=== PATIENT | female | born 1930 | race Caucasian/White ===

== ENCOUNTER 2018-01-05 10:49 | Emergency (ER) | payer MEDICARE, OTHER ==
[~2018-01-05] VITALS: Ht 170.2 cm; Wt 76.0 kg
[~2018-01-05 10:49] MED LIST: CIPR500T2 PO; CYCL5TAB PO; DIFFCHW PO; DONE10TA7 PO; DRIS50002 PO; FERR65TA PO; LORA-474 PO; LOSA50TA PO; MAGNSOL PO; MECL-62 PO; MIRA33504 PO; MONT10TA4 PO; MULT1TAB84 PO; MULT400T PO; NIFE15TA PO; OMEP40CA2 PO; PERI8.6T PO; PRED10 PO; RANI150C PO; REME15TA PO; TUMS500C CHEW; VENL75TA PO; XARE20TA PO; ZOFR4TAB PO
[2018-01-05 11:08] VITALS: BP 130/62; PULSE 72; RESP 16; TEMP 97.6; O2SAT 96
[2018-01-05] MEDS ORDERED: SODIUM CHLORID 0.9% 500 ML INJ 500 ML IV ONE (12:30)
--- NOTE | 2018-01-05 12:32 | PD ---
HPI Chief Complaint: GI Complaint Time Seen by Provider: 12:15 Travel History International Travel<30 days: No Contact w/Intl Traveler<30days: No Traveled to known affect area: No History of Present Illness HPI This 87-year-old female says she has had large amounts of loose stools since . Symptoms seem worse Friday and Friday she was having 3-4 loose stools a day. She was feeling weak. This morning she again had loose stools. She says are quite watery they are not dark. He does not think she has been on any antibiotics recently. She was told recently that she had a UTI but did not get any antibiotics for it. She feels weak all over PFSH Past Medical History Hx Anticoagulant Therapy: Yes Arthritis: Yes (OSTEO) Depression: Yes Heart Rhythm Problems: Yes (AFIB) Cancer: Yes Cardiovascular Problems: Yes (htn on meds, vena cava filter) Chemotherapy: No COPD: Yes Diabetes: No Diminished Hearing: Yes Deep Vein Thrombosis: Yes Fibromyalgia: Yes Implanted Vascular Access Dvce: Yes Musculoskeletal: Yes (LUMBAR SPONDYLOSIS, BULGING DISCS, SCIATICA) Neurologic: Yes Respiratory: No Radiation Therapy: No ?: Not Menopausal: Yes Past Surgical History Body Medical Devices: FILTER AND BREAST IMPLANTS Ear Surgery: Yes (JAVIER CATARACTS) Eye Surgery: Yes (BILATERAL CATARACTS) Gynecologic Surgery: Yes (LEFT MASTECTOMY) Hysterectomy: No Mastectomy: Yes (LEFT, WITH RECONSTRUCTION) Pacemaker: No Other Surgery: Yes (FILTER FOR BLOOD CLOTS) Social History Alcohol Use: Yes (RARELY) Tobacco Use: No (FORMER) Substance Use: No Allergies-Medications (Allergen,Severity, Reaction): Coded Allergies: hydrocodone (Unverified Allergy, Severe, N/V, 01/05/18) Reported Meds & Prescriptions Reported Meds & Active Scripts Active Reported Nifedipine ER 24 HR (Nifedipine) 60 Mg Tab 60 Mg PO DAILY Eq Magnesium Citrate (Magnesium Citrate) 1.745 Gm/30 Ml Vickie 1 Bottle PO DIRECTED PRN Ativan (Lorazepam) 1 Mg Tab 1 Mg PO BID PRN Diff-Stat (Probiotic Product) 1 Cap Cap 1 Cap PO BID Remeron (Mirtazapine) 15 Mg Tab 15 Mg PO HS Omeprazole 40 Mg Cap 40 Mg PO DAILY Meclizine (Meclizine HCl) 25 Mg Tab 25 Mg PO TID PRN Flexeril (Cyclobenzaprine HCl) 5 Mg Tab 5 Mg PO BID PRN Effexor (Venlafaxine HCl) 75 Mg Tab 75 Mg PO DAILY Donepezil 10 Mg Tab 10 Mg PO DAILY Losartan (Losartan Potassium) 50 Mg Tab 50 Mg PO DAILY Multaq (Dronedarone) 400 Mg Tab 400 Mg PO BID Xarelto (Rivaroxaban) 20 Mg Tab 20 Mg PO DAILY Montelukast (Montelukast Sodium) 10 Mg Tab 10 Mg PO DAILY Review of Systems General / Constitutional: No: Fever, Chills Eyes: No: Diploplia, Blurred Vision HENT: No: Headaches, Vertigo Cardiovascular: No: Chest Pain or Discomfort, Palpitations Respiratory: No: Cough, Shortness of Breath Gastrointestinal: Positive: Diarrhea, No: Nausea, Vomiting Genitourinary: No: Urgency, Frequency Musculoskeletal: No: Myalgias, Arthralgias Skin: No Rash, No Itching Neurologic: Positive: Weakness Endocrine: No: Heat Intolerance Hematologic/Lymphatic: No: Easy Bruising Physical Exam Narrative GENERAL: Well-developed female SKIN: Focused skin assessment warm/dry. HEAD: Atraumatic. Normocephalic. EYES: Pupils equal and round. No scleral icterus. No injection or drainage. ENT: No nasal bleeding or discharge. Mucous membranes pink and moist. NECK: Trachea midline. No JVD. CARDIOVASCULAR: Regular rate and rhythm. No murmur appreciated. RESPIRATORY: No accessory muscle use. Clear to auscultation. Breath sounds equal bilaterally. GASTROINTESTINAL: Abdomen soft, non-tender, nondistended. Hepatic and splenic margins not palpable. MUSCULOSKELETAL: No obvious deformities. No clubbing. No cyanosis. No edema. NEUROLOGICAL: Awake and alert. No obvious cranial nerve deficits. Motor grossly within normal limits. Normal speech. PSYCHIATRIC: Appropriate mood and affect; insight and judgment normal. Data Data Last Documented VS Vital Signs Date Time Temp Pulse Resp B/P (MAP) Pulse Ox O2 Delivery O2 Flow Rate FiO2 01/05/18 13:01 52 18 131/71 (91) 97 Room Air 01/05/18 11:08 97.6 Orders Orders Complete Blood Count With Diff (01/05/18 12:25) Comprehensive Metabolic Panel (01/05/18 12:25) Urinalysis - C+S If Indicated (01/05/18 12:25) Magnesium (Mg) (01/05/18 12:25) Sodium Chlorid 0.9% 500 Ml Inj (Ns 500 M (01/05/18 12:30) Urine Culture (01/05/18 12:40) Ceftriaxone Inj (Rocephin Inj) (01/05/18 13:15) Sodium Chlor 0.9% 1000 Ml Inj (Ns 1000 M (01/05/18 13:30) Labs Laboratory Tests Test 01/05/18 12:35 01/05/18 12:40 White Blood Count 5.5 TH/MM3 Red Blood Count 4.01 MIL/MM3 Hemoglobin 12.1 GM/DL Hematocrit 36.3 % Mean Corpuscular Volume 90.6 FL Mean Corpuscular Hemoglobin 30.1 PG Mean Corpuscular Hemoglobin Concent 33.2 % Red Cell Distribution Width 13.5 % Platelet Count 298 TH/MM3 Mean Platelet Volume 8.4 FL Neutrophils (%) (Auto) 63.2 % Lymphocytes (%) (Auto) 24.3 % Monocytes (%) (Auto) 11.4 % Eosinophils (%) (Auto) 0.3 % Basophils (%) (Auto) 0.8 % Neutrophils # (Auto) 3.6 TH/MM3 Lymphocytes # (Auto) 1.3 TH/MM3 Monocytes # (Auto) 0.6 TH/MM3 Eosinophils # (Auto) 0.0 TH/MM3 Basophils # (Auto) 0.0 TH/MM3 CBC Comment DIFF FINAL Differential Comment Blood Urea Nitrogen 33 MG/DL Creatinine 1.80 MG/DL Random Glucose 117 MG/DL Total Protein 7.9 GM/DL Albumin 3.1 GM/DL Calcium Level 7.8 MG/DL Magnesium Level 2.4 MG/DL Alkaline Phosphatase 78 U/L Aspartate Amino Transf (AST/SGOT) 27 U/L Alanine Aminotransferase (ALT/SGPT) 25 U/L Total Bilirubin 0.3 MG/DL Sodium Level 135 MEQ/L Potassium Level 3.5 MEQ/L Chloride Level 104 MEQ/L Carbon Dioxide Level 19.5 MEQ/L Anion Gap 12 MEQ/L Estimat Glomerular Filtration Rate 27 ML/MIN Urine Collection Type CLEAN CATCH Urine Color YELLOW Urine Turbidity CLEAR Urine pH 5.5 Urine Specific [place] 1.025 Urine Protein TRACE mg/dL Urine Glucose (UA) NEG mg/dL Urine Ketones NEG mg/dL Urine Occult Blood NEG Urine Nitrite NEG Urine Bilirubin NEG Urine Urobilinogen 0.2 MG/DL Urine Leukocyte Esterase SMALL Urine RBC 0-3 /hpf Urine WBC 25-49 /hpf Urine WBC Clumps FEW Urine Squamous Epithelial Cells 0-5 /hpf Urine Bacteria FEW /hpf Microscopic Urinalysis Comment CULTURE INDICATED Urine Collection Time 12:40 [facility] Medical Decision Making Medical Screen Exam Complete: Yes Emergency Medical Condition: Yes Medical Record Reviewed: Yes Differential Diagnosis Differential includes enteritis, UTI, dehydration Narrative Course Urinalysis shows 25-50 white cells. Creatinine is elevated at 1.8. We do not have a recent value on her. She has been given some IV fluids and a dose of Rocephin. She will be released with prescription for Keflex Diagnosis Primary Impression: UTI (urinary tract infection) Scripts Cephalexin (Keflex) 500 Mg Capsule 500 MG PO QID for Infection for 7 Days, CAP 0 Refills Prov: Ermias Levine MD 01/05/18 Disposition: 01 DISCHARGE HOME Condition: Stable Ermias Levine MD January 05, 2018 12:32
[2018-01-05 12:48] LABS: BILIRUBIN, URINE NEG (NEG); BLOOD, URINE NEG (NEG); GLUCOSE,URINE NEG (NEG); KETONE, URINE NEG (NEG); NITRITE,URINE NEG (NEG); PH, URINE 5.5 (5.0-8.5); URINE COLOR YELLOW (YELLW/STRAW); URINE LEUKOCYTE ESTERASE SMALL (NEG)
[2018-01-05 12:49] LABS: AUTOMATED NEUTROPHIL # 3.6 TH/MM3 (1.8-7.7); BASOPHIL % 0.8 % (0.0-2.0); EOSINOPHIL % 0.3 % (0.0-4.0); HEMATOCRIT 36.3 % (35.0-46.0); HEMOGLOBIN 12.1 GM/DL (11.6-15.3); LYMPH % 24.3 % (9.0-44.0); LYMPHOCYTE # 1.3 TH/MM3 (1.0-4.8); MEAN CELL VOLUME 90.6 FL (80.0-100.0); MEAN CORPUSCULAR HEMOGLOBIN 30.1 PG (27.0-34.0); MEAN CORPUSCULAR HGB CONC 33.2 % (32.0-36.0); MEAN PLATELET VOLUME 8.4 FL (7.0-11.0); MONO % 11.4 % (0.0-8.0); MONOCYTE # 0.6 TH/MM3 (0-0.9); NEUT % 63.2 % (16.0-70.0); PLATELET COUNT 298 TH/MM3 (150-450); RED BLOOD COUNT 4.01 MIL/MM3 (4.00-5.30); RED CELL DISTRIBUTION WIDTH 13.5 % (11.6-17.2); WHITE BLOOD COUNT 5.5 TH/MM3 (4.0-11.0)
[2018-01-05 12:56] LABS: WHITE BLOOD CELL CLUMPS FEW
[2018-01-05 12:57] LABS: BACTERIA, URINE FEW /hpf; RBC, URINE 0-3 /hpf (0-3); SQUAMOUS EPITHELIAL CELL URINE 0-5 /hpf (0-5)
[2018-01-05] MEDS ORDERED: NIFE60TA58 PO (13:00)
[2018-01-05 13:01] VITALS: BP 131/71; PULSE 52; RESP 18; O2SAT 97
[2018-01-05 13:04] LABS: CHLORIDE 104 MEQ/L (98-107); SODIUM (NA) 135 MEQ/L (136-145)
[2018-01-05 13:07] LABS: ALBUMIN 3.1 GM/DL (3.4-5.0); BICARBONATE 19.5 MEQ/L (21.0-32.0); BLOOD UREA NITROGEN 33 MG/DL (7-18); CALCIUM 7.8 MG/DL (8.5-10.1); GLUCOSE,RANDOM 117 MG/DL (74-106); MAGNESIUM 2.4 MG/DL (1.5-2.5)
[2018-01-05 13:10] LABS: ALT (GPT) 25 U/L (10-53); AST (GOT) 27 U/L (15-37)
[2018-01-05 13:11] LABS: GLOMERULAR FILTRATION RATE 27 ML/MIN (>89)
[2018-01-05 13:12] LABS: TOTAL BILIRUBIN ADULT 0.3 MG/DL (0.2-1.0); TOTAL PROTEIN 7.9 GM/DL (6.4-8.2)
[2018-01-05 13:13] LABS: ALKALINE PHOSPHATASE 78 U/L (45-117)
[2018-01-05] MEDS ORDERED: cefTRIAXone INJ 1,000 MG in SODIUM CHLORIDE 0.9% INJ 100 ML IV ONE (13:15)
[2018-01-05] MEDS ORDERED: SODIUM CHLOR 0.9% 1000 ML INJ 1,000 ML IV ONE (13:30)
[2018-01-05 14:05] VITALS: BP 135/73; PULSE 64; RESP 18; O2SAT 94
[2018-01-05] MEDS ORDERED: CEPH-460 PO (14:13)
[2018-01-05 14:59] VITALS: BP 152/62
== END 2018-01-05 15:23 | disposition home or self-care (01) ==
LOC: PHED 10:49
DX: N39.0 Urinary tract infection, site not specified (principal); R19.7 Diarrhea, unspecified; R53.1 Weakness; M19.90 Unspecified osteoarthritis, unspecified site; I48.91 Unspecified atrial fibrillation; I10 Essential (primary) hypertension; J44.9 Chronic obstructive pulmonary disease, unspecified; M79.7 Fibromyalgia; Z86.718 Personal history of other venous thrombosis and embolism
CPT/HCPCS: 80053; 81001; 83735; 85025; 87086; 96361; 96365; 99284; J0696; J7030; J7040